=== PATIENT | female | born 1940 | race Caucasian/White ===

== ENCOUNTER 2019-07-12 12:45 | Emergency (ER) | payer OTHER ==
[~2019-07-12] VITALS: Ht 157.5 cm; Wt 51.7 kg
[2019-07-12] MEDS ORDERED: CALTRATE 600 +1 EACH PO (13:13)
[2019-07-12] MEDS ORDERED: VITA-C120 GM PO (13:14)
== END 2019-07-12 22:06 | disposition home or self-care (01) ==
LOC: ER 12:45
DX: J40 Bronchitis, not specified as acute or chronic (principal)

== ENCOUNTER 2023-07-26 09:12 | Outpatient (CLI) | payer OTHER ==
[~2023-07-26 09:12] MED LIST: CALTRATE 600 +1 EACH PO; VITA-C120 GM PO
== END 2023-07-26 09:22 | disposition home or self-care (01) ==
LOC: RX STUDY 09:12
PROVIDERS: ATTEND Internal Medicine Gastroenterology
DX: K22.2 Esophageal obstruction (principal)